=== PATIENT | male | born 1965 | race African-American/Black ===

== ENCOUNTER 2019-09-18 10:21 | Emergency (ER) | payer MEDICAID, OTHER ==
[~2019-09-18] VITALS: Ht 172.7 cm; Wt 114.3 kg
[2019-09-18 14:42] LABS: Basophils # (auto) 0 uL; Basophils % (auto) 0.2 % (0.0-2.0); Eosinophils # (auto) 0.4 uL; Eosinophils % (auto) 3.4 % (0.0-7.0); Hematocrit 46.7 % (41.0-53.0); Hemoglobin 15.5 g/dL (13.5-17.5); Lymphocytes # (auto) 2.2 uL; Lymphocytes % (auto) 18.2 % (10.0-50.0); Mean Corpuscular Hgb Conc. 33.2 g/dL (32.0-36.0); Mean Corpuscular Volume 93.6 fL (80.0-100.0); Monocytes # (auto) 0.8 uL; Monocytes % (auto) 6.8 % (0.0-12.0); Neutrophils # (auto) 8.8 uL; Neutrophils % (auto) 71.4 % (37.0-80.0); Platelet Count (auto) 240 10^3/uL (140-450); Red Blood Cells 4.99 10^6/uL (4.5-5.90); Red Cell Distribution Width 14.6 % (11.8-14.3); White Blood Cell 12.3 10^3/uL (4.4-10.8)
[2019-09-18 14:50] LABS: Alanine Aminotransferase 33 U/L (16-61); Albumin 3.6 g/dL (3.4-5.0); Anion Gap 5 (5-15); Aspartate Aminotransferase 17 U/L (15-37); BUN/Creatinine Ratio 11.1; Blood Urea Nitrogen 11 mg/dL (7-18); Calcium 8.7 mg/dL (8.5-10.1); Carbon Dioxide 28 mmol/L (21-32); Chloride 104 mmol/L (98-107); GFR African American 101 mL/min; GFR Non-African American 84 mL/min; Glucose 120 mg/dL (74-106); Potassium 4.3 mmol/L (3.5-5.1); Sodium 137 mmol/L (136-145)
[2019-09-18 14:56] LABS: Alkaline Phosphatase 84 U/L (45-117); Bilirubin, Total 0.3 mg/dL (0.2-1.0)
[2019-09-18 17:02] VITALS: BP 150/90
== END 2019-09-18 17:03 | disposition home or self-care (01) ==
LOC: ER 10:21
DX: J20.9 Acute bronchitis, unspecified (principal); E11.9 Type 2 diabetes mellitus without complications; I10 Essential (primary) hypertension; F17.200 Nicotine dependence, unspecified, uncomplicated
CPT/HCPCS: 36415; 71046; 80053; 83880; 84484; 85025

== ENCOUNTER 2022-04-28 12:38 | Inpatient (IN) | payer MEDICAID ==
[~2022-04-28] VITALS: Ht 172.7 cm; Wt 120.2 kg
[2022-04-28] MEDS ORDERED: SODIUM CHLORIDE 0.9% 1,000 ML IV ONE (13:45)
[2022-04-28] MEDS ORDERED: predniSONE 20 MG TAB PO ONE (14:45)
[2022-04-28] MEDS ORDERED: metroNIDAZOLE 500MG/100ML 100 ML IV ONE (14:45)
[2022-04-28] MEDS ORDERED: levoFLOXacin 500MG 100 ML IV ONE (14:45)
[2022-04-28 14:57] LABS: Albumin 3.2 g/dL (3.4-5.0); Calcium 8.7 mg/dL (8.5-10.1); Potassium 3.4 mmol/L (3.5-5.1)
[2022-04-28 14:58] LABS: Basophils # (auto) 0 10 ^3/uL (0-0.2); Basophils % (auto) 0.1 % (0.0-2.0); Eosinophils # (auto) 0.7 10 ^3/uL (0-0.8); Eosinophils % (auto) 5.6 % (0.0-7.0); Hematocrit 40.6 % (41.0-53.0); Hemoglobin 13.2 g/dL (13.5-17.5); Lymphocytes # (auto) 2.8 10 ^3/uL (0.4-5.4); Lymphocytes % (auto) 22.1 % (10.0-50.0); Mean Corpuscular Hemoglobin 29.9 pg (28.0-32.0); Mean Corpuscular Hgb Conc. 32.5 g/dL (32.0-36.0); Mean Corpuscular Volume 92.2 fL (80.0-100.0); Monocytes # (auto) 1.2 10 ^3/uL (0-1.3); Monocytes % (auto) 9.4 % (0.0-12.0); Neutrophils # (auto) 7.8 10 ^3/uL (1.6-8.6); Neutrophils % (auto) 62.8 % (37.0-80.0); Red Cell Distribution Width 14.6 % (11.8-14.3); White Blood Cell 12.4 10^3/uL (4.4-10.8)
[2022-04-28 15:00] LABS: BUN/Creatinine Ratio 16.3; Bilirubin, Total 0.3 mg/dL (0.2-1.0); Total Protein 7.4 g/dL (6.4-8.2)
[2022-04-28 15:08] LABS: INR 1.03 (0.9-1.15); Partial Thromboplastin Time 32.2 sec (24.6-33.4)
[2022-04-29] VITALS (8 sets, daily range): BP systolic 135–191; BP diastolic 89–113
[2022-04-29] MEDS ORDERED: ACETAMINOPHEN 325 MG TAB PO PRN (02:45)
[2022-04-29] MEDS ORDERED: ONDANSETRON HCL 4 MG/2 ML VIAL IV PRN (02:45)
[2022-04-29 04:03] LABS: Basophils # (auto) 0 10 ^3/uL (0-0.2); Basophils % (auto) 0.1 % (0.0-2.0); Eosinophils # (auto) 0 10 ^3/uL (0-0.8); Eosinophils % (auto) 0.3 % (0.0-7.0); Hematocrit 41.3 % (41.0-53.0); Hemoglobin 13.3 g/dL (13.5-17.5); Lymphocytes # (auto) 1.8 10 ^3/uL (0.4-5.4); Lymphocytes % (auto) 13.9 % (10.0-50.0); Mean Corpuscular Hemoglobin 29.7 pg (28.0-32.0); Mean Corpuscular Hgb Conc. 32.3 g/dL (32.0-36.0); Mean Corpuscular Volume 91.9 fL (80.0-100.0); Monocytes % (auto) 7.6 % (0.0-12.0); Neutrophils # (auto) 9.8 10 ^3/uL (1.6-8.6); Neutrophils % (auto) 78.1 % (37.0-80.0); Red Cell Distribution Width 14.7 % (11.8-14.3); White Blood Cell 12.6 10^3/uL (4.4-10.8)
[2022-04-29] MEDS: MORPHINE SULFATE INJ 2 MG/ml SYRG IV PRN ×3 (04:13→20:20)
[2022-04-29 04:21] LABS: Albumin 3.4 g/dL (3.4-5.0); Calcium 8.9 mg/dL (8.5-10.1)
[2022-04-29 04:24] LABS: BUN/Creatinine Ratio 15.6
[2022-04-29 04:26] LABS: Bilirubin, Total 0.3 mg/dL (0.2-1.0); Total Protein 7.4 g/dL (6.4-8.2)
[2022-04-29] MEDS ORDERED: METO-159 PO (05:04)
[2022-04-29] MEDS ORDERED: OXY5T PO (05:06)
[2022-04-29] MEDS: metroNIDAZOLE 500MG/100ML 100 ML IV SCH ×3 (06:09→21:43)
[2022-04-29] MEDS: cefTRIAXone 1GM/50ML D5W 50 ML IV SCH (09:29)
[2022-04-29] MEDS ORDERED: METOPROLOL SUCCINATE XL 50 MG TAB PO SCH (10:00)
[2022-04-29] MEDS ORDERED: methylPREDNISolone SOD SUCC 40 MG/ML VL IV SCH (10:00)
[2022-04-29] MEDS: SODIUM CHLORIDE 0.9% 1,000 ML IV SCH ×2 (11:15→21:46)
[2022-04-29] MEDS: HYDROcodone-ACET 5/325MG TAB PO PRN ×2 (16:24→21:59)
[2022-04-29] MEDS ORDERED: MESALAMINE 4 GM/60 ML RC PR ONE (19:30)
[2022-04-29] MEDS ORDERED: DICYCLOMINE HCL 10 MG CAP PO PRN (20:15)
[2022-04-29] MEDS: NICOTINE 21MG/24 HR TOPICAL PATCH TD SCH (20:20)
[2022-04-29] MEDS: methylPREDNISolone SOD SUCC 40 MG/ML VL IV SCH (21:43)
[2022-04-29] MEDS: MESALAMINE 400mg Delayed Release Cap PO SCH (21:44)
[2022-04-30] MEDS: MORPHINE SULFATE INJ 2 MG/ml SYRG IV PRN ×4 (02:08→20:40)
[2022-04-30] MEDS: HYDROcodone-ACET 5/325MG TAB PO PRN ×2 (04:52→17:38)
[2022-04-30 05:05] VITALS: BP 152/85
[2022-04-30] MEDS: metroNIDAZOLE 500MG/100ML 100 ML IV SCH ×3 (05:51→21:38)
[2022-04-30] MEDS: MESALAMINE 400mg Delayed Release Cap PO SCH ×3 (05:51→21:38)
[2022-04-30] MEDS: methylPREDNISolone SOD SUCC 40 MG/ML VL IV SCH ×3 (05:51→21:38)
[2022-04-30] MEDS: SODIUM CHLORIDE 0.9% 1,000 ML IV SCH ×3 (05:54→19:27)
[2022-04-30 08:00] VITALS: BP 163/96
[2022-04-30] MEDS: cefTRIAXone 1GM/50ML D5W 50 ML IV SCH (09:13)
[2022-04-30] MEDS: PANTOPRAZOLE 40 MG/10 ML VIAL INJ IV SCH (09:15)
[2022-04-30] MEDS: METOPROLOL SUCCINATE XL 50 MG TAB PO SCH (09:16)
[2022-04-30 12:00] VITALS: BP 144/86
[2022-04-30 16:00] VITALS: BP 154/85
[2022-04-30] MEDS: NICOTINE 21MG/24 HR TOPICAL PATCH TD SCH (20:00)
[2022-04-30 22:00] VITALS: BP 152/96
[2022-05-01] MEDS: HYDROcodone-ACET 5/325MG TAB PO PRN ×2 (01:03→06:00)
[2022-05-01] MEDS: MORPHINE SULFATE INJ 2 MG/ml SYRG IV PRN (04:20)
[2022-05-01 05:00] VITALS: BP 181/97
[2022-05-01] MEDS ORDERED: hydrALAZINE HCL 20 MG/ML VL IV PRN (05:30)
[2022-05-01] MEDS: MESALAMINE 400mg Delayed Release Cap PO SCH (05:49)
[2022-05-01] MEDS: methylPREDNISolone SOD SUCC 40 MG/ML VL IV SCH (05:49)
[2022-05-01] MEDS: metroNIDAZOLE 500MG/100ML 100 ML IV SCH (05:49)
[2022-05-01] MEDS: SODIUM CHLORIDE 0.9% 1,000 ML IV SCH ×2 (05:57→12:23)
[2022-05-01] MEDS ORDERED: METR500T PO (08:31)
[2022-05-01] MEDS ORDERED: LEVO500T31 PO (08:31)
[2022-05-01] MEDS ORDERED: PERCOT PO (08:31)
[2022-05-01] MEDS ORDERED: DICY10CA PO (08:31)
[2022-05-01] MEDS ORDERED: PRED20TA2 PO (08:31)
[2022-05-01] MEDS ORDERED: MESA400C PO (08:34)
[2022-05-01 09:00] VITALS: BP 156/104
[2022-05-01] MEDS: PANTOPRAZOLE 40 MG/10 ML VIAL INJ IV SCH (11:30)
[2022-05-01] MEDS: cefTRIAXone 1GM/50ML D5W 50 ML IV SCH (11:30)
[2022-05-01] MEDS: METOPROLOL SUCCINATE XL 50 MG TAB PO SCH (11:31)
[2022-05-01 12:24] VITALS: BP 135/88
== END 2022-05-01 12:30 | disposition home or self-care (01) | DRG 245 ==
LOC: ER 12:38 → OVERFLOW 04-29 02:41 → EAST 04-29 03:30
PROVIDERS: ADMIT Nurse Practitioner; ATTEND Family Medicine
DX: K51.90 Ulcerative colitis, unspecified, without complications (principal); K92.2 Gastrointestinal hemorrhage, unspecified; R56.9 Unspecified convulsions; E11.9 Type 2 diabetes mellitus without complications; E66.01 Morbid (severe) obesity due to excess calories; F17.210 Nicotine dependence, cigarettes, uncomplicated; I10 Essential (primary) hypertension; Z86.16 Personal history of COVID-19; G56.00 Carpal tunnel syndrome, unspecified upper limb; K40.20 Bilateral inguinal hernia, without obstruction or gangrene, not specified as recurrent; K42.9 Umbilical hernia without obstruction or gangrene; Z68.30 Body mass index [BMI] 30.0-30.9, adult
CPT/HCPCS: 36415; 70450; 74176; 80053; 82270; 83880; 84484; 85025; 85610; 85730; 86850; 86900; 86901; 93005; 96365; 96366; 96368; C9113; G0378; J0696; J1956; J3490

== ENCOUNTER 2024-06-30 02:34 | Inpatient (IN) | payer MEDICAID, OTHER ==
[~2024-06-30] VITALS: Ht 172.7 cm; Wt 118.0 kg
[~2024-06-30 02:34] MED LIST: DICY10CA PO; LEVO500T31 PO; MESA400C PO; METO-159 PO; METR500T PO; OXY5T PO; PERCOT PO; PRED20TA2 PO
[2024-06-30 04:28] LABS: Basophils # (auto) 0 10 ^3/uL (0-0.2); Basophils % (auto) 0.2 % (0.0-2.0); Eosinophils # (auto) 0 10 ^3/uL (0-0.8); Eosinophils % (auto) 0.3 % (0.0-7.0); Hematocrit 39.8 % (41.0-53.0); Hemoglobin 13.8 g/dL (13.5-17.5); Lymphocytes # (auto) 0.8 10 ^3/uL (0.4-5.4); Lymphocytes % (auto) 7.7 % (10.0-50.0); Mean Corpuscular Hemoglobin 32.9 pg (28.0-32.0); Mean Corpuscular Hgb Conc. 34.6 g/dL (32.0-36.0); Mean Corpuscular Volume 95.3 fL (80.0-100.0); Monocytes # (auto) 0.6 10 ^3/uL (0-1.3); Monocytes % (auto) 5.6 % (0.0-12.0); Neutrophils # (auto) 8.7 10 ^3/uL (1.6-8.6); Neutrophils % (auto) 86.2 % (37.0-80.0); Platelet Count (auto) 244 10^3/uL (140-450); Red Blood Cells 4.18 10^6/uL (4.5-5.90); Red Cell Distribution Width 14.6 % (11.8-14.3); White Blood Cell 10.1 10^3/uL (4.4-10.8)
[2024-06-30 04:56] LABS: Alanine Aminotransferase 18 U/L (7-40); Albumin 4.5 g/dL (3.2-4.8); Alkaline Phosphatase 67 U/L (46-116); Anion Gap 11 (5-15); Aspartate Aminotransferase 24 U/L (13-40); BUN/Creatinine Ratio 21.3 (10.0-20.0); Blood Urea Nitrogen 17 mg/dL (9-23); Calcium 9.1 mg/dL (8.7-10.4); Carbon Dioxide 24 mmol/L (20-30); Chloride 104 mmol/L (98-107); Glucose 126 mg/dL (74-106); Potassium 3.3 mmol/L (3.5-5.1); Sodium 139 mmol/L (136-145)
[2024-06-30 04:57] LABS: Bilirubin, Total 0.4 mg/dL (0.2-1.0); Total Protein 7.2 g/dL (5.7-8.2)
[2024-06-30] MEDS: PANTOPRAZOLE 40 MG/10 ML VIAL INJ IV ONE ×2 (08:15→16:29)
[2024-06-30] MEDS: ONDANSETRON HCL 4 MG/2 ML VIAL IV ONE (08:15)
[2024-06-30] MEDS: MORPHINE SULFATE 4 MG/ML SYR/VIAL IV ONE ×2 (08:16→15:15)
[2024-06-30] MEDS: SODIUM CHLORIDE 0.9% 1,000 ML IV ONE (08:18)
[2024-06-30] MEDS ORDERED: ONDANSETRON HCL 4 MG/2 ML VIAL IV PRN (15:15)
[2024-06-30] MEDS ORDERED: DOCUSATE SOD 100 MG CAP PO PRN (15:15)
[2024-06-30] MEDS ORDERED: NITROGLYCERIN 0.4 MG SL TAB SL PRN (15:15)
[2024-06-30] MEDS: POTASSIUM EFFERVESENT TAB 25 MEQ PO ONE (16:24)
[2024-06-30] MEDS: SODIUM CHLORIDE 0.9% 1,000 ML IV SCH (16:24)
[2024-06-30 16:35] LABS: Erythrocyte Sedimentation Rate 37 mm/hr (0-20)
[2024-06-30] MEDS: MORPHINE SULFATE INJ 2 MG/ml SYRG IV PRN (16:42)
[2024-06-30] MEDS: DICYCLOMINE HCL (10MG/ML) 2 ML AMPULE IM ONE (17:16)
[2024-06-30 18:12] VITALS: BP 149/64; PULSE 80; RESP 16; TEMP 99.1; O2SAT 97
[2024-06-30] MEDS ORDERED: AMLO1TAB22 PO (18:19)
[2024-06-30] MEDS ORDERED: FLUT1INH27 INH (18:19)
[2024-06-30] MEDS ORDERED: ALBU108A5 INH (18:19)
[2024-06-30] MEDS ORDERED: PHEN1CAP38 PO (18:19)
[2024-06-30] MEDS ORDERED: GABA-1250 PO (18:19)
[2024-06-30] MEDS ORDERED: TIZA-142 PO (18:19)
[2024-06-30] MEDS ORDERED: MESA400C5 PO (18:19)
[2024-06-30] MEDS ORDERED: METO100T18 PO (18:19)
[2024-06-30 20:00] VITALS: PULSE 91; RESP 19; O2SAT 100
[2024-06-30 21:00] VITALS: BP 133/96; PULSE 71; RESP 19; TEMP 98.3; O2SAT 100
[2024-06-30] MEDS: methylPREDNISolone SOD SUCC 125 MG/2 ML VL IV SCH (21:06)
[2024-06-30] MEDS: PANTOPRAZOLE 40 MG/10 ML VIAL INJ IV SCH (21:06)
[2024-06-30] MEDS: DICYCLOMINE HCL 10 MG CAP PO SCH (21:06)
[2024-06-30] MEDS: LACTULOSE 20Gm/30ML SOLN PO SCH (21:06)
[2024-06-30] MEDS: ZOLPIDEM TARTRATE 5 MG TAB PO PRN (21:07)
[2024-06-30] MEDS: PHENYTOIN SODIUM 100 MG CAP PO SCH (21:07)
[2024-06-30] MEDS: GABAPENTIN 300 MG CAP PO SCH (21:11)
[2024-06-30] MEDS: FLUTICASONE PROP NASAL SPR 0.05 % (50MCG) 16GM EACHNOSTRI SCH (22:00)
[2024-06-30] MEDS: MONTELUKAST SODIUM 10 MG TAB PO SCH (22:20)
[2024-07-01 07:10] LABS: Basophils # (auto) 0 10 ^3/uL (0-0.2); Basophils % (auto) 0.1 % (0.0-2.0); Eosinophils # (auto) 0 10 ^3/uL (0-0.8); Hematocrit 41.5 % (41.0-53.0); Lymphocytes # (auto) 0.8 10 ^3/uL (0.4-5.4); Lymphocytes % (auto) 11.6 % (10.0-50.0); Mean Corpuscular Hemoglobin 32.6 pg (28.0-32.0); Mean Corpuscular Hgb Conc. 33.6 g/dL (32.0-36.0); Monocytes # (auto) 0.2 10 ^3/uL (0-1.3); Monocytes % (auto) 2.4 % (0.0-12.0); Neutrophils # (auto) 6.1 10 ^3/uL (1.6-8.6); Neutrophils % (auto) 85.9 % (37.0-80.0); Platelet Count (auto) 235 10^3/uL (140-450); Red Blood Cells 4.28 10^6/uL (4.5-5.90); Red Cell Distribution Width 14.7 % (11.8-14.3); White Blood Cell 7.1 10^3/uL (4.4-10.8)
[2024-07-01 07:37] LABS: Alanine Aminotransferase 22 U/L (7-40); Albumin 4.4 g/dL (3.2-4.8); Alkaline Phosphatase 67 U/L (46-116); Anion Gap 12 (5-15); BUN/Creatinine Ratio 19.5 (10.0-20.0); Blood Urea Nitrogen 16 mg/dL (9-23); Calcium 9.5 mg/dL (8.7-10.4); Carbon Dioxide 22 mmol/L (20-30); Chloride 106 mmol/L (98-107); Glucose 125 mg/dL (74-106); Sodium 140 mmol/L (136-145)
[2024-07-01 07:38] LABS: Aspartate Aminotransferase 30 U/L (13-40); Bilirubin, Total 0.3 mg/dL (0.2-1.0); Total Protein 7.2 g/dL (5.7-8.2)
[2024-07-01] MEDS: OXYCODONE W/ ACETAMINOPHEN 5/325MG TABLET PO PRN ×2 (08:17→22:29)
[2024-07-01 08:55] VITALS: BP 131/81; PULSE 77; RESP 20; TEMP 98; O2SAT 97
[2024-07-01] MEDS: amLODIPine BESYLATE 5 MG TAB PO SCH (10:00)
[2024-07-01] MEDS ORDERED: PANTOPRAZOLE 40 MG/10 ML VIAL INJ IV SCH (10:00)
[2024-07-01] MEDS: predniSONE 20 MG TAB PO SCH (10:00)
[2024-07-01] MEDS: METOPROLOL TARTRATE 50 MG TAB PO SCH (10:01)
[2024-07-01] MEDS ORDERED: POLYETHYLENE GLYCOL 17 GM PWDR PO PRN (12:00)
[2024-07-01 12:55] VITALS: BP 128/80; PULSE 62; RESP 20; TEMP 98; O2SAT 99
[2024-07-01 16:50] VITALS: BP 120/71; PULSE 68; RESP 20; TEMP 98.3; O2SAT 98
[2024-07-01] MEDS ORDERED: FLUTICASONE PROP NASAL SPR 0.05 % (50MCG) 16GM EACHNOSTRI PRN (19:45)
[2024-07-01 21:00] VITALS: BP 137/72; PULSE 73; RESP 18; TEMP 97.8; O2SAT 95
[2024-07-02 01:00] VITALS: BP 148/84; PULSE 82; RESP 17; TEMP 98.2; O2SAT 98
[2024-07-02 05:00] VITALS: BP 152/74; PULSE 86; RESP 18; O2SAT 97
[2024-07-02 08:43] VITALS: BP 140/80; PULSE 82; RESP 18; TEMP 98.7; O2SAT 100
[2024-07-02 13:00] VITALS: BP 153/74; PULSE 74; RESP 18; TEMP 98.4; O2SAT 96
[2024-07-02] MEDS ORDERED: PRED20TA2 PO (15:55)
== END 2024-07-02 16:29 | disposition home or self-care (01) | DRG 245 ==
LOC: ER 02:34 → OVERFLOW 15:24 → WEST WING 17:44
PROVIDERS: ADMIT Nurse Practitioner Family; ATTEND Nurse Practitioner Acute Care
DX: K51.911 Ulcerative colitis, unspecified with rectal bleeding (principal); Q79.1 Other congenital malformations of diaphragm; E87.6 Hypokalemia; I10 Essential (primary) hypertension; K42.9 Umbilical hernia without obstruction or gangrene; K59.00 Constipation, unspecified; F17.210 Nicotine dependence, cigarettes, uncomplicated; G89.29 Other chronic pain; E66.9 Obesity, unspecified; Z68.39 Body mass index [BMI] 39.0-39.9, adult
CPT/HCPCS: 36415; 74176; 80053; 83605; 83735; 84100; 85025; 85652; 86141; G0378; J2405; J2470